=== PATIENT | male | born 1955 | race African-American/Black ===

== ENCOUNTER 2022-04-01 02:13 | Emergency (ER) | payer MEDICARE, MEDICAID ==
[~2022-04-01] VITALS: Ht 188 cm; Wt 90.9 kg
[2022-04-01 02:26] VITALS: BP 189/111
[2022-04-01] MEDS ORDERED: DOCU-138 MT (03:07)
[2022-04-01] MEDS: NA PHOS,M-B/NA PHOS,DI-BA ENEMA 118ML PR ONE ×2 (03:16→03:24)
== END 2022-04-01 03:25 | disposition home or self-care (01) ==
LOC: ER 02:13
DX: K59.00 Constipation, unspecified (principal); Z20.822 Contact with and (suspected) exposure to COVID-19
CPT/HCPCS: 87426; 99283; C9803

== ENCOUNTER 2023-07-06 16:53 | Emergency (ER) | payer MEDICARE, MEDICAID ==
[~2023-07-06] VITALS: Ht 188 cm; Wt 82.0 kg
[~2023-07-06 16:53] MED LIST: ASPI-1497 PO; ATOR10TA69 PO; BACL-141 MT; DOCU-138 MT; HYDR100T26 MT; LABE200T9 MT; LISI40TA13 PO; MULT-26 PO; VITA1TAB20 MT
[2023-07-06 17:00] VITALS: BP 150/95; PULSE 80; RESP 17; TEMP 97.9; O2SAT 98
[2023-07-06 18:10] LABS: BASOPHILS % 1.4 % (0.0-2.0); EOSINOPHILS % 5.3 % (0.0-5.0); HEMATOCRIT. 32.2 % (42.0-52.0); HEMOGLOBIN. 10.5 g/dL (14.0-18.0); LYMPHOCYTES % 31.6 % (20.0-50.0); MEAN CORPUSCULAR HEMOGLOBIN 29.1 pg (28.0-32.0); MEAN CORPUSCULAR HGB CONC 32.5 g/dL (31.0-37.0); MEAN CORPUSCULAR VOLUME 89.3 fL (80.0-94.0); MEAN PLATELET VOLUME 8.6 fl (7.4-10.4); MONOCYTES % 9.7 % (2.0-8.0); PLATELET 145 x1000/uL (130-400); RED CELL DISTRIBUTION WIDTH 18.5 % (11.6-14.6); WHITE BLOOD COUNT 4.3 x1000/uL (4.5-11.0)
[2023-07-06 18:18] LABS: ALANINE AMINOTRANSFERASE 23 IU/L (10-49); ASPARTATE AMINOTRANSFERASE 23 IU/L (<34); BILIRUBIN TOTAL 0.4 mg/dL (0.1-1.0); CARBON DIOXIDE 25 mEq/L (21-32); CHLORIDE 99 mEq/L (98-107); GLUCOSE 125 mg/dL (70-105); POTASSIUM 5.8 mEq/L (3.5-5.1); PROTEIN TOTAL 7.2 g/dL (6.0-8.3); SODIUM 137 mEq/L (136-145); TROPONIN I HIGH SENSITIVITY 51 ng/L (3.0-53); UREA NITROGEN BLOOD 60 mg/dL (9-23)
== END 2023-07-06 22:32 | disposition home or self-care (01) ==
LOC: ER 16:53
DX: R06.00 Dyspnea, unspecified (principal); E11.9 Type 2 diabetes mellitus without complications; E78.00 Pure hypercholesterolemia, unspecified; I10 Essential (primary) hypertension; Z79.899 Other long term (current) drug therapy
CPT/HCPCS: 36415; 71045; 80053; 83880; 84484; 85025; 93005; 99285

== ENCOUNTER 2023-10-26 13:23 | Emergency (ER) | payer MEDICARE, MEDICAID ==
[~2023-10-26] VITALS: Ht 188 cm; Wt 82.0 kg
[~2023-10-26 13:23] MED LIST changes: +AMLO10TA4 PO; +LEVO250T74 MT; +VITA-384 MT; -VITA1TAB20 MT
[2023-10-26 13:44] VITALS: O2SAT 100
[2023-10-26 15:48] LABS: HEMATOCRIT. 31.3 % (42.0-52.0); HEMOGLOBIN. 10.3 g/dL (14.0-18.0); MEAN CORPUSCULAR HEMOGLOBIN 29.5 pg (28.0-32.0); MEAN CORPUSCULAR HGB CONC 32.9 g/dL (31.0-37.0); MEAN CORPUSCULAR VOLUME 89.6 fL (80.0-94.0); MEAN PLATELET VOLUME 8.9 fl (7.4-10.4); PLATELET 154 x1000/uL (130-400); RED BLOOD CELL COUNT 3.49 mill/uL (4.7-6.1); RED CELL DISTRIBUTION WIDTH 17.5 % (11.6-14.6); WHITE BLOOD COUNT 3.6 x1000/uL (4.5-11.0)
[2023-10-26 15:51] LABS: DIFFERENTIAL COMMENT 1
[2023-10-26] MEDS ORDERED: LORATADINE 10MG TABLET PO SCH (16:00)
[2023-10-26 16:27] LABS: ATYPICAL LYMPHOCYTES 1; GIANT PLATELETS 1+; PLATELET ESTIMATE NORMAL; TARGET CELLS 1+
[2023-10-26] MEDS ORDERED: HYDR26CR2 TP (16:43)
[2023-10-26] MEDS ORDERED: LORA10TA7 MT (16:46)
[2023-10-26 16:47] VITALS: BP 136/84; PULSE 89; RESP 18; TEMP 98.3
== END 2023-10-26 16:54 | disposition home or self-care (01) ==
LOC: ER 13:23
DX: K64.4 Residual hemorrhoidal skin tags (principal); I12.0 Hypertensive chronic kidney disease with stage 5 chronic kidney disease or end stage renal disease; E11.22 Type 2 diabetes mellitus with diabetic chronic kidney disease; N18.6 End stage renal disease; Z99.2 Dependence on renal dialysis; Z79.899 Other long term (current) drug therapy
CPT/HCPCS: 36415; 85025; 99283

== ENCOUNTER 2023-12-09 16:46 | Inpatient (IN) | payer MEDICARE, MEDICAID ==
[~2023-12-09] VITALS: Ht 182.9 cm; Wt 70.8 kg
[~2023-12-09 16:46] MED LIST changes: -BACL-141 MT; +CLON1PAT12 TD; +GABA-532 PO; -LEVO250T74 MT; -LISI40TA13 PO; +LORA10TA7 MT; +MELA1TAB28 MT; +OMEP20CA14 PO
[2023-12-09 18:55] LABS: BASOPHILS % 1.8 % (0.0-2.0); EOSINOPHILS % 7.6 % (0.0-5.0); HEMATOCRIT. 31.6 % (42.0-52.0); HEMOGLOBIN. 10.5 g/dL (14.0-18.0); LYMPHOCYTES % 18.1 % (20.0-50.0); MEAN CORPUSCULAR HEMOGLOBIN 30.2 pg (28.0-32.0); MEAN CORPUSCULAR HGB CONC 33.2 g/dL (31.0-37.0); MEAN CORPUSCULAR VOLUME 90.8 fL (80.0-94.0); MEAN PLATELET VOLUME 8.7 fl (7.4-10.4); MONOCYTES % 13.7 % (2.0-8.0); NEUTROPHILS % 58.8 % (40.0-76.0); PLATELET 169 x1000/uL (130-400); RED BLOOD CELL COUNT 3.48 mill/uL (4.7-6.1); RED CELL DISTRIBUTION WIDTH 18.7 % (11.6-14.6); WHITE BLOOD COUNT 4.9 x1000/uL (4.5-11.0)
[2023-12-09 19:00] LABS: CHLORIDE 98 mEq/L (98-107); POTASSIUM 4.7 mEq/L (3.5-5.1); SODIUM 140 mEq/L (136-145)
[2023-12-09 19:01] LABS: CALCIUM 9.4 mg/dL (8.7-10.4); CARBON DIOXIDE 31 mEq/L (21-32)
[2023-12-09 19:06] LABS: GLUCOSE 84 mg/dL (70-105); UREA NITROGEN BLOOD 45 mg/dL (9-23)
[2023-12-09 19:07] LABS: ALANINE AMINOTRANSFERASE 18 IU/L (10-49); ASPARTATE AMINOTRANSFERASE 32 IU/L (<34)
[2023-12-09 19:08] LABS: ALBUMIN 4.7 g/dL (3.2-4.8); BILIRUBIN TOTAL 0.9 mg/dL (0.1-1.0); PHOSPHORUS 5.6 mg/dL (2.5-4.9); PROTEIN TOTAL 8.8 g/dL (6.0-8.3)
[2023-12-09 19:10] LABS: THYROID STIMULATING HORMONE 2.66 uIU/mL (0.55-4.78)
[2023-12-09 19:21] LABS: CREATININE 7.1 mg/dL (0.6-1.3)
[2023-12-09 19:22] LABS: TROPONIN I HIGH SENSITIVITY 66 ng/L (3.0-53)
[2023-12-09] MEDS: LABETALOL 5MG/ML SYR 20 MG/4 ML SYRINGE IV NR (20:00)
[2023-12-09] MEDS: LABETALOL 5MG/ML SYR 20 MG/4 ML SYRINGE IV ONE (21:00)
[2023-12-09] MEDS ORDERED: NICARDIPINE 50 MG in SODIUM CHLORIDE 0.9% 230 ML IV PRN (21:15)
[2023-12-09 21:51] LABS: TROPONIN I HIGH SENSITIVITY 64 ng/L (3.0-53)
[2023-12-09] MEDS: NICARDIPINE 40 MG/200 ML PREMIX 200 ML IV PRN (22:45)
[2023-12-09 23:06] LABS: HEPATITIS B SURFACE ANTIGEN NEGATIVE (Negative)
[2023-12-09 23:27] LABS: HEPATITIS A AB IGM NEGATIVE (Negative); HEPATITIS B CORE AB IGM NEGATIVE (Negative)
[2023-12-09 23:28] LABS: HEPATITIS C AB REACTIVE (Pos) (Negative)
[2023-12-10] VITALS (76 sets, daily range): BP systolic 97–165; BP diastolic 79–114; PULSE 78–100; RESP 0–37; TEMP 97.1–98.5
[2023-12-10 05:16] LABS: BASOPHILS % 1.8 % (0.0-2.0); EOSINOPHILS % 5.4 % (0.0-5.0); HEMATOCRIT. 29.9 % (42.0-52.0); HEMOGLOBIN. 9.9 g/dL (14.0-18.0); MEAN CORPUSCULAR HEMOGLOBIN 30.4 pg (28.0-32.0); MEAN CORPUSCULAR HGB CONC 33.2 g/dL (31.0-37.0); MEAN CORPUSCULAR VOLUME 91.5 fL (80.0-94.0); MEAN PLATELET VOLUME 9.4 fl (7.4-10.4); MONOCYTES % 12.8 % (2.0-8.0); PLATELET 181 x1000/uL (130-400); RED BLOOD CELL COUNT 3.26 mill/uL (4.7-6.1); RED CELL DISTRIBUTION WIDTH 18.5 % (11.6-14.6); WHITE BLOOD COUNT 4.8 x1000/uL (4.5-11.0)
[2023-12-10 05:24] LABS: POTASSIUM 4.5 mEq/L (3.5-5.1)
[2023-12-10 05:25] LABS: CALCIUM 8.8 mg/dL (8.7-10.4)
[2023-12-10 05:49] LABS: CREATININE 7.8 mg/dL (0.6-1.3)
[2023-12-10 09:40] LABS: AMMONIA < 17 uMol/L (<32)
[2023-12-10] MEDS ORDERED: IPRATROPIUM/ALBUTEROL 0.5-3(2.5)MG/3ML NEB HHN PRN (11:30)
[2023-12-10] MEDS ORDERED: ACETAMINOPHEN 325MG TABLET PO PRN (11:30)
[2023-12-10] MEDS ORDERED: ONDANSETRON HCL 4MG/2ML INJ IV PRN (11:30)
[2023-12-10] MEDS: AMLODIPINE 10MG TABLET PO SCH (12:46)
[2023-12-10] MEDS: LOSARTAN 100 MG TABLET PO SCH (12:46)
[2023-12-10] MEDS: SEVELAMER CARBONATE 800 MG TABLET PO SCH (12:47)
[2023-12-10] MEDS: CARVEDILOL 12.5MG TABLET PO NR (12:47)
[2023-12-10] MEDS: CLONIDINE 0.1MG TABLET PO SCH (16:56)
[2023-12-10] MEDS: CARVEDILOL 12.5MG TABLET PO SCH (21:59)
[2023-12-11] VITALS (25 sets, daily range): BP systolic 138–175; BP diastolic 80–128; PULSE 71–92; RESP 11–29; TEMP 97.1–98.6
[2023-12-11 06:48] LABS: HEMATOCRIT. 30.1 % (42.0-52.0); HEMOGLOBIN. 9.9 g/dL (14.0-18.0); MEAN CORPUSCULAR HEMOGLOBIN 30.3 pg (28.0-32.0); MEAN CORPUSCULAR VOLUME 91.7 fL (80.0-94.0); MEAN PLATELET VOLUME 9.4 fl (7.4-10.4); PLATELET 166 x1000/uL (130-400); RED BLOOD CELL COUNT 3.28 mill/uL (4.7-6.1); RED CELL DISTRIBUTION WIDTH 18.4 % (11.6-14.6)
[2023-12-11 06:58] LABS: DIFFERENTIAL COMMENT 1
[2023-12-11 07:38] LABS: CHLORIDE 101 mEq/L (98-107); SODIUM 139 mEq/L (136-145)
[2023-12-11 07:39] LABS: CARBON DIOXIDE 27 mEq/L (21-32)
[2023-12-11 07:44] LABS: GLUCOSE 106 mg/dL (70-105); UREA NITROGEN BLOOD 37 mg/dL (9-23)
[2023-12-11 09:08] LABS: CREATININE 6.9 mg/dL (0.6-1.3)
[2023-12-11] MEDS ORDERED: AMLO10TA80 MT (12:20)
[2023-12-11] MEDS ORDERED: CLON0.2T MT (12:20)
[2023-12-11] MEDS ORDERED: CARV25TA47 MT (12:20)
[2023-12-11] MEDS ORDERED: LOSA100T33 MT (12:20)
[2023-12-11 12:57] LABS: ANISOCYTOSIS 2+; PLATELET ESTIMATE NORMAL
[2023-12-12] VITALS (12 sets, daily range): BP systolic 126–167; BP diastolic 82–98; PULSE 66–82; RESP 17–20; TEMP 95.5–98.2
[2023-12-12 08:27] LABS: HEMATOCRIT. 29.1 % (42.0-52.0); HEMOGLOBIN. 9.9 g/dL (14.0-18.0); MEAN CORPUSCULAR HEMOGLOBIN 30.3 pg (28.0-32.0); MEAN CORPUSCULAR VOLUME 89.4 fL (80.0-94.0); MEAN PLATELET VOLUME 8.8 fl (7.4-10.4); PLATELET 151 x1000/uL (130-400); RED BLOOD CELL COUNT 3.26 mill/uL (4.7-6.1); RED CELL DISTRIBUTION WIDTH 18.2 % (11.6-14.6)
[2023-12-12 08:38] LABS: POTASSIUM 4.1 mEq/L (3.5-5.1)
[2023-12-12 08:39] LABS: CALCIUM 9.7 mg/dL (8.7-10.4)
[2023-12-12 08:48] LABS: CREATININE 8.3 mg/dL (0.6-1.3)
[2023-12-12 09:00] LABS: DIFFERENTIAL COMMENT 1
[2023-12-12 17:17] LABS: PLATELET ESTIMATE NORMAL
[2023-12-12 17:18] LABS: ANISOCYTOSIS 2+
[2023-12-13 04:00] VITALS: BP 155/94; PULSE 78; RESP 20; TEMP 97.6
[2023-12-13 08:00] VITALS: BP 159/96; PULSE 77; RESP 20; TEMP 98.4
[2023-12-13 11:34] VITALS: BP 152/91; PULSE 77; TEMP 97.9; O2SAT 94
[2023-12-13 11:40] VITALS: BP 152/91; PULSE 77; RESP 18; TEMP 97.9
== END 2023-12-13 12:00 | disposition home or self-care (01) | DRG 70 ==
LOC: ER 16:46 → CVICU 21:27 → 7WST 12-11 10:16
PROVIDERS: ADMIT Internal Medicine; ATTEND Internal Medicine
PROC: 5A1D70Z Performance of Urinary Filtration, Intermittent, Less than 6 Hours Per Day (ICD-10-PCS; principal; 2023-12-10)
PROC: 5A1D70Z Performance of Urinary Filtration, Intermittent, Less than 6 Hours Per Day (ICD-10-PCS; 2023-12-12)
DX: G93.41 Metabolic encephalopathy (principal); I50.23 Acute on chronic systolic (congestive) heart failure; N18.6 End stage renal disease; I13.2 Hypertensive heart and chronic kidney disease with heart failure and with stage 5 chronic kidney disease, or end stage renal disease; I16.1 Hypertensive emergency; B19.20 Unspecified viral hepatitis C without hepatic coma; D63.1 Anemia in chronic kidney disease; J44.9 Chronic obstructive pulmonary disease, unspecified; E11.22 Type 2 diabetes mellitus with diabetic chronic kidney disease; E78.5 Hyperlipidemia, unspecified; F14.90 Cocaine use, unspecified, uncomplicated; F17.210 Nicotine dependence, cigarettes, uncomplicated; Z99.2 Dependence on renal dialysis; Z79.899 Other long term (current) drug therapy
CPT/HCPCS: 36415; 71045; 80048; 80053; 82140; 82962; 83735; 83880; 84100; 84443; 84484; 85025; 86705; 86709; 87340; 90935; 93005; 97162; 97165; 99291; J3490

== ENCOUNTER 2024-08-21 14:06 | Emergency (ER) | payer MEDICARE, MEDICAID ==
[~2024-08-21] VITALS: Ht 172.7 cm; Wt 70.0 kg
[~2024-08-21 14:06] MED LIST changes: -AMLO10TA4 PO; +AMLO10TA80 MT; +CARV25TA47 MT; +CHOL200016 PO; +CLON0.2T MT; -CLON1PAT12 TD; -GABA-532 PO; +HYDR100T11 MT; -HYDR100T26 MT; +ISOS60TA76 PO; -LABE200T9 MT; +LOSA100T33 MT; +SEVE800T8 PO
[2024-08-21 14:54] LABS: HEMATOCRIT. 30.4 % (42.0-52.0); HEMOGLOBIN. 9.8 g/dL (14.0-18.0); MEAN CORPUSCULAR HEMOGLOBIN 27.4 pg (28.0-32.0); MEAN CORPUSCULAR HGB CONC 32.1 g/dL (31.0-37.0); MEAN CORPUSCULAR VOLUME 85.4 fL (80.0-94.0); MEAN PLATELET VOLUME 8.7 fl (7.4-10.4); PLATELET 121 x1000/uL (130-400); RED BLOOD CELL COUNT 3.56 mill/uL (4.7-6.1); RED CELL DISTRIBUTION WIDTH 17.3 % (11.6-14.6)
[2024-08-21 14:56] LABS: DIFFERENTIAL COMMENT 1
[2024-08-21 15:03] LABS: CHLORIDE 100 mEq/L (98-107); SODIUM 135 mEq/L (136-145)
[2024-08-21 15:04] LABS: CARBON DIOXIDE 21 mEq/L (21-32)
[2024-08-21 15:05] LABS: CALCIUM 8.9 mg/dL (8.7-10.4)
[2024-08-21 15:09] LABS: GLUCOSE 103 mg/dL (70-105)
[2024-08-21 15:10] LABS: UREA NITROGEN BLOOD 79 mg/dL (9-23)
[2024-08-21 15:11] LABS: ALANINE AMINOTRANSFERASE 18 IU/L (10-49); ALBUMIN 3.5 g/dL (3.2-4.8); ASPARTATE AMINOTRANSFERASE 48 IU/L (<34)
[2024-08-21 15:12] LABS: BILIRUBIN DIRECT 0.2 mg/dL (<=3.0); BILIRUBIN TOTAL 0.4 mg/dL (0.1-1.0); PROTEIN TOTAL 6.8 g/dL (6.0-8.3)
[2024-08-21 15:26] LABS: PLATELET ESTIMATE NORMAL
[2024-08-21 15:34] LABS: POTASSIUM 6.4 mEq/L (3.5-5.1)
[2024-08-21 15:35] LABS: CREATININE 11.4 mg/dL (0.6-1.3); ETHANOL BLOOD < 10 mg/dL (<10); TROPONIN I HIGH SENSITIVITY 111 ng/L (3.0-53)
[2024-08-21] MEDS ORDERED: FUROSEMIDE 40MG/4ML VIAL IV NR (16:51)
[2024-08-21] MEDS: CALCIUM CHLORIDE 1GM/10ML SYR IV NR (17:19)
[2024-08-21] MEDS: FUROSEMIDE 40MG/4ML VIAL IVP NR (17:20)
[2024-08-21] MEDS: SODIUM POLYSTYRENE SULFONATE 15 G/60 ML BOT PO NR (17:20)
[2024-08-21] MEDS: ASPIRIN 325MG EC TABLET PO NR (17:20)
[2024-08-21] MEDS: DEXTROSE 50% WATER 50ML SYRINGE IV NR (17:23)
[2024-08-21] MEDS: INSULIN REGULAR (HUMULIN R) 1000UNITS/10ML VIAL IV NR (17:24)
[2024-08-21] MEDS: SODIUM BICARBONATE 8.4% 50MEQ/50ML SYR IV NR (17:24)
[2024-08-21] MEDS: ENOXAPARIN 80MG/0.8ML SYR SUBCUT NR (17:26)
[2024-08-21 17:45] VITALS: PULSE 74; RESP 20; O2SAT 97
[2024-08-21] MEDS: ALBUTEROL (0.083%) 2.5MG/3ML NEB HHN NR (17:45)
[2024-08-21] MEDS ORDERED: IPRATROPIUM/ALBUTEROL 0.5-3(2.5)MG/3ML NEB HHN PRN (18:00)
[2024-08-21] MEDS ORDERED: ACETAMINOPHEN 325MG TABLET PO PRN (18:00)
[2024-08-21] MEDS ORDERED: ONDANSETRON HCL 4MG/2ML INJ IV PRN (18:00)
[2024-08-21] MEDS ORDERED: CLONIDINE 0.1MG TABLET PO PRN (18:00)
[2024-08-21] MEDS ORDERED: SODIUM POLYSTYRENE SULFONATE 15 G/60 ML BOT PO ONE (18:00)
[2024-08-21] MEDS ORDERED: MAGNESIUM/ALUMINUM HYDROXIDE/SIMETHICONE 30ML UDC PO PRN (18:00)
[2024-08-21] MEDS ORDERED: GUAIFENESIN 200MG/10ML SUGAR FREE UDC PO PRN (18:30)
[2024-08-21] MEDS: SODIUM ZIRCONIUM CYCLOSILICATE 10GM/PACKET PO NR (18:46)
[2024-08-21 20:25] LABS: D-DIMER 3.99 mg/L FEU (<0.50); INR 1.2; PROTHROMBIN TIME 13.5 sec (9.6-11.0)
[2024-08-21 20:26] LABS: CARBON DIOXIDE 22 mEq/L (21-32); CHLORIDE 101 mEq/L (98-107); POTASSIUM 5.9 mEq/L (3.5-5.1); SODIUM 137 mEq/L (136-145)
[2024-08-21 20:27] LABS: CALCIUM 9.3 mg/dL (8.7-10.4)
[2024-08-21 20:31] LABS: IRON 37 ug/dL (65-175)
[2024-08-21 20:32] LABS: GLUCOSE 67 mg/dL (70-105); TRIGLYCERIDE 115 mg/dL (0-150); UREA NITROGEN BLOOD 81 mg/dL (9-23)
[2024-08-21 20:33] LABS: LDL CHOLESTEROL 25 mg/dL (5-100)
[2024-08-21 20:34] LABS: CHOLESTEROL 107 mg/dL (<200); HDL CHOLESTEROL 23 mg/dL (>55); TOTAL IRON BINDING CAPACITY 222 ug/dl (250-425)
[2024-08-21 20:38] LABS: T4 FREE 1.04 ng/dL (0.89-1.76); THYROID STIMULATING HORMONE 3.02 uIU/mL (0.55-4.78)
[2024-08-21 20:39] LABS: CREATININE 11.4 mg/dL (0.6-1.3)
[2024-08-21 20:44] LABS: FOLIC ACID (FOLATE) SERUM 16.13 ng/mL (>5.38); VITAMIN B12 SERUM 989 pg/mL (211-911)
[2024-08-21 20:45] LABS: FERRITIN 589 ng/mL (22-322)
[2024-08-21] MEDS ORDERED: FAMOTIDINE 20MG TABLET PO SCH (21:00)
[2024-08-21] MEDS ORDERED: ATORVASTATIN CALCIUM 10MG TABLET PO SCH (21:00)
[2024-08-21 22:41] VITALS: BP 142/84; PULSE 76; RESP 20; TEMP 36.66960; O2SAT 92
[2024-08-22] MEDS ORDERED: ENOXAPARIN 30MG/0.3ML SYR SUBCUT SCH (09:00)
[2024-08-22] MEDS ORDERED: ASPIRIN 81MG EC TABLET PO SCH (09:00)
[2024-08-22] MEDS ORDERED: FUROSEMIDE 40MG/4ML VIAL IV SCH (09:00)
== END 2024-08-22 03:00 | disposition left against medical advice (07) ==
LOC: ER 14:10 → EDBEDREQ 17:04 → ER 08-22 03:00
DX: E78.5 Hyperlipidemia, unspecified (principal); E61.1 Iron deficiency; I21.4 Non-ST elevation (NSTEMI) myocardial infarction; E11.22 Type 2 diabetes mellitus with diabetic chronic kidney disease; E87.5 Hyperkalemia; E87.6 Hypokalemia; E87.8 Other disorders of electrolyte and fluid balance, not elsewhere classified; I13.2 Hypertensive heart and chronic kidney disease with heart failure and with stage 5 chronic kidney disease, or end stage renal disease; I50.9 Heart failure, unspecified; Z79.82 Long term (current) use of aspirin; Z79.899 Other long term (current) drug therapy; Z86.19 Personal history of other infectious and parasitic diseases; Z90.5 Acquired absence of kidney; Z91.158 Patient's noncompliance with renal dialysis for other reason; Z95.810 Presence of automatic (implantable) cardiac defibrillator; Z99.2 Dependence on renal dialysis
CPT/HCPCS: 80061; 80076; 80048; 80320; 82607; 82728; 82746; 83880; 84439; 83540; 83550; 83690; 84443; 85025; 85379; 85610; 84484; 36415; 71045; 70450; 76700; 76705; 94640; 93005; 94070; 96372; 96374; 96375; 99291; 99292; J3490 ×2; J1650; J1940; J1815; G0480

== ENCOUNTER 2025-01-04 17:20 | Inpatient (IN) | payer MEDICARE, MEDICAID ==
[~2025-01-04] VITALS: Ht 188 cm; Wt 85.4 kg
[~2025-01-04 17:20] MED LIST changes: +ASPI-1406 PO; +CARV25TA47 PO; +CLON-493 PO; +HYDR100T11 PO; +ISOS-51 PO; +LOSA100T33 PO; +NIFE20CA8 PO
[2025-01-04 17:31] VITALS: O2SAT 97
[2025-01-04 18:06] LABS: EOSINOPHILS % 7.5 % (0.0-5.0); HEMATOCRIT. 29.3 % (42.0-52.0); HEMOGLOBIN. 9.7 g/dL (14.0-18.0); LYMPHOCYTES % 17.4 % (20.0-50.0); MEAN CORPUSCULAR HEMOGLOBIN 27.6 pg (28.0-32.0); MEAN CORPUSCULAR HGB CONC 33.2 g/dL (31.0-37.0); MEAN CORPUSCULAR VOLUME 83.1 fL (80.0-94.0); MEAN PLATELET VOLUME 7.1 fl (7.4-10.4); MONOCYTES % 10.6 % (2.0-8.0); NEUTROPHILS % 63.5 % (40.0-76.0); PLATELET 214 x1000/uL (130-400); RED BLOOD CELL COUNT 3.52 mill/uL (4.7-6.1); RED CELL DISTRIBUTION WIDTH 18.4 % (11.6-14.6); WHITE BLOOD COUNT 4.5 x1000/uL (4.5-11.0)
[2025-01-04 18:12] LABS: CHLORIDE 96 mEq/L (98-107); POTASSIUM 3.6 mEq/L (3.5-5.1); SODIUM 137 mEq/L (136-145)
[2025-01-04 18:13] LABS: CALCIUM 9.2 mg/dL (8.7-10.4); CARBON DIOXIDE 30 mEq/L (21-32)
[2025-01-04 18:18] LABS: GLUCOSE 123 mg/dL (70-105)
[2025-01-04 18:19] LABS: CREATININE 4.3 mg/dL (0.6-1.3); ETHANOL BLOOD < 10 mg/dL (<10); TROPONIN I HIGH SENSITIVITY 32 ng/L (3.0-53); UREA NITROGEN BLOOD 20 mg/dL (9-23)
[2025-01-04 18:20] LABS: ACETAMINOPHEN < 2 ug/mL (10-30); ALANINE AMINOTRANSFERASE 19 IU/L (10-49); ALBUMIN 3.9 g/dL (3.2-4.8); AMMONIA 18 uMol/L (<32); ASPARTATE AMINOTRANSFERASE 32 IU/L (<34); CREATINE KINASE 242 IU/L (46-171)
[2025-01-04 18:21] LABS: BILIRUBIN DIRECT 0.3 mg/dL (<=3.0); BILIRUBIN TOTAL 0.6 mg/dL (0.1-1.0); PROTEIN TOTAL 7.6 g/dL (6.0-8.3)
[2025-01-04 18:23] LABS: THYROID STIMULATING HORMONE 3.88 uIU/mL (0.55-4.78)
[2025-01-04 18:26] LABS: INR 1.2; PROTHROMBIN TIME 12.4 sec (9.6-11.0)
[2025-01-04] MEDS: ACETAMINOPHEN 325MG TABLET PO ONE (20:12)
[2025-01-04] MEDS ORDERED: DEXTROSE 50% WATER 50ML SYRINGE IV PRN (22:30)
[2025-01-04] MEDS ORDERED: ACETAMINOPHEN 325MG TABLET PO PRN (22:30)
[2025-01-04] MEDS ORDERED: MAGNESIUM/ALUMINUM HYDROXIDE/SIMETHICONE 30ML UDC PO PRN (22:30)
[2025-01-04 22:45] VITALS: BP 152/86; PULSE 87; RESP 20; TEMP 36.6
[2025-01-05] VITALS (7 sets, daily range): BP systolic 143–182; BP diastolic 86–100; PULSE 71–88; RESP 18–20; TEMP 36.3–37.4; O2SAT 96–100
[2025-01-05] MEDS: ACETAMINOPHEN 325MG TABLET PO PRN (04:19)
[2025-01-05 05:57] LABS: BASOPHILS % 1.2 % (0.0-2.0); HEMATOCRIT. 30.4 % (42.0-52.0); HEMOGLOBIN. 10.2 g/dL (14.0-18.0); LYMPHOCYTES % 16.7 % (20.0-50.0); MEAN CORPUSCULAR HEMOGLOBIN 27.7 pg (28.0-32.0); MEAN CORPUSCULAR HGB CONC 33.6 g/dL (31.0-37.0); MEAN CORPUSCULAR VOLUME 82.3 fL (80.0-94.0); MEAN PLATELET VOLUME 7.8 fl (7.4-10.4); MONOCYTES % 12.7 % (2.0-8.0); NEUTROPHILS % 62.4 % (40.0-76.0); PLATELET 208 x1000/uL (130-400); RED BLOOD CELL COUNT 3.69 mill/uL (4.7-6.1); RED CELL DISTRIBUTION WIDTH 17.7 % (11.6-14.6); WHITE BLOOD COUNT 4.1 x1000/uL (4.5-11.0)
[2025-01-05 06:12] LABS: CALCIUM 8.9 mg/dL (8.7-10.4); CARBON DIOXIDE 29 mEq/L (21-32); CHLORIDE 94 mEq/L (98-107); POTASSIUM 3.9 mEq/L (3.5-5.1); SODIUM 134 mEq/L (136-145)
[2025-01-05 06:14] LABS: FERRITIN 185 ng/mL (22-322)
[2025-01-05 06:16] LABS: CREATININE 4.7 mg/dL (0.6-1.3); GLUCOSE 114 mg/dL (70-105); TRIGLYCERIDE 48 mg/dL (0-150)
[2025-01-05 06:17] LABS: FOLIC ACID (FOLATE) SERUM 10.37 ng/mL (>5.38); LDL CHOLESTEROL 19 mg/dL (5-100); VITAMIN B12 SERUM 494 pg/mL (211-911)
[2025-01-05 06:18] LABS: CHOLESTEROL 89 mg/dL (<200); HDL CHOLESTEROL 43 mg/dL (>55); UREA NITROGEN BLOOD 25 mg/dL (9-23)
[2025-01-05 06:19] LABS: PHOSPHORUS 4.2 mg/dL (2.5-4.9)
[2025-01-05 06:23] LABS: TROPONIN I HIGH SENSITIVITY 36 ng/L (3.0-53)
[2025-01-05 06:24] LABS: T4 FREE 1.37 ng/dL (0.89-1.76)
[2025-01-05 06:35] LABS: IRON 56 ug/dL (65-175)
[2025-01-05 06:38] LABS: TOTAL IRON BINDING CAPACITY 195 ug/dl (250-425)
[2025-01-05] MEDS: HYDRALAZINE HCL 100MG TABLET PO SCH (06:45)
[2025-01-05] MEDS: INSULIN LISPRO 100 UNITS/ML SUBCUT SCH (07:41)
[2025-01-05] MEDS: BLOOD SUGAR DIAGNOSTIC STRIP TEST SCH (07:41)
[2025-01-05] MEDS: CARVEDILOL 12.5MG TABLET PO SCH (08:42)
[2025-01-05] MEDS: LOSARTAN 100 MG TABLET PO SCH (08:42)
[2025-01-05] MEDS: AMLODIPINE 10MG TABLET PO SCH (08:42)
[2025-01-05] MEDS: ISOSORBIDE MONONITRATE 60MG TABLET SR 24HR PO SCH (08:42)
[2025-01-05] MEDS: DOCUSATE SODIUM 100MG CAPSULE PO SCH (08:42)
[2025-01-05] MEDS: LORATADINE 10MG TABLET PO SCH (08:42)
[2025-01-05] MEDS: ASPIRIN 81MG EC TABLET PO SCH (08:42)
[2025-01-05] MEDS ORDERED: HYDRALAZINE HCL 100MG TABLET PO SCH (09:00)
[2025-01-05] MEDS: CLONIDINE 0.1MG TABLET PO PRN (12:23)
[2025-01-05] MEDS: SEVELAMER CARBONATE 800 MG TABLET PO SCH (12:23)
[2025-01-05] MEDS: CLONIDINE 0.3MG TABLET PO SCH (14:00)
[2025-01-05] MEDS: ARIPIPRAZOLE 5MG TABLET PO SCH (14:05)
[2025-01-05 16:21] LABS: TROPONIN I HIGH SENSITIVITY 31 ng/L (3.0-53)
[2025-01-05 16:39] LABS: HEPATITIS B SURFACE ANTIGEN NEGATIVE (Negative)
[2025-01-05 17:00] LABS: HEPATITIS A AB IGM NEGATIVE (Negative); HEPATITIS B CORE AB IGM NEGATIVE (Negative)
[2025-01-05 17:34] LABS: HEPATITIS C AB REACTIVE (Pos) (Negative)
[2025-01-05] MEDS ORDERED: MELATONIN 3MG TABLET PO SCH (21:00)
[2025-01-05] MEDS: MELATONIN 3MG TABLET PO SCH (21:16)
[2025-01-05] MEDS: ATORVASTATIN CALCIUM 10MG TABLET PO SCH (21:16)
[2025-01-06] VITALS (15 sets, daily range): BP systolic 119–166; BP diastolic 75–89; PULSE 60–96; RESP 17–20; TEMP 36.1–36.9; O2SAT 95–99
[2025-01-06 06:37] LABS: HEMATOCRIT 26.8 % (42.0-52.0); HEMOGLOBIN 9.1 g/dL (14.0-18.0); MEAN CORPUSCULAR HEMOGLOBIN 27.7 pg (28.0-32.0); MEAN CORPUSCULAR HGB CONC 33.9 g/dL (31.0-37.0); MEAN CORPUSCULAR VOLUME 81.7 fL (80.0-94.0); PLATELET 187 x1000/uL (130-400); RED BLOOD CELL COUNT 3.27 mill/uL (4.7-6.1); RED CELL DISTRIBUTION WIDTH 17.7 % (11.6-14.6); WHITE BLOOD COUNT 3.7 x1000/uL (4.5-11.0)
[2025-01-06 06:48] LABS: POTASSIUM 4.4 mEq/L (3.5-5.1)
[2025-01-06 06:59] LABS: CREATININE 6.2 mg/dL (0.6-1.3)
== END 2025-01-06 19:40 | disposition home health service (06) | DRG 291 ==
LOC: ER 17:20 → ENRESERV 21:42 → 7WST 22:31
PROVIDERS: ADMIT Hospitalist; ATTEND Hospitalist
PROC: 5A1D70Z Performance of Urinary Filtration, Intermittent, Less than 6 Hours Per Day (ICD-10-PCS; principal; 2025-01-06)
DX: I13.2 Hypertensive heart and chronic kidney disease with heart failure and with stage 5 chronic kidney disease, or end stage renal disease (principal); N18.6 End stage renal disease; F23 Brief psychotic disorder; L29.89 Other pruritus; I50.42 Chronic combined systolic (congestive) and diastolic (congestive) heart failure; B19.20 Unspecified viral hepatitis C without hepatic coma; R06.02 Shortness of breath; R53.1 Weakness; E11.40 Type 2 diabetes mellitus with diabetic neuropathy, unspecified; G47.00 Insomnia, unspecified; Z99.2 Dependence on renal dialysis; E11.22 Type 2 diabetes mellitus with diabetic chronic kidney disease; I48.91 Unspecified atrial fibrillation; D64.9 Anemia, unspecified; Z86.73 Personal history of transient ischemic attack (TIA), and cerebral infarction without residual deficits; Z91.148 Patient's other noncompliance with medication regimen for other reason; Z95.810 Presence of automatic (implantable) cardiac defibrillator
CPT/HCPCS: 36415; 71045; 80048; 80061; 80076; 80307; 80320; 80329; 82140; 82550; 82607; 82728; 82746; 82962; 83036; 83540; 83550; 83735; 84100; 84439; 84443; 84484; 85025; 85027; 86705; 86709; 87340; 90935; 93005; 97166; 99285; J1815; G0480

== ENCOUNTER 2025-01-28 09:53 | Emergency (ER) | payer MEDICARE, MEDICAID ==
[~2025-01-28] VITALS: Ht 188 cm; Wt 81.6 kg
[~2025-01-28 09:53] MED LIST changes: -AMLO10TA80 MT; +AMLO10TA80 PO; +ARIP5TAB51 PO; -ASPI-1406 PO; -CARV25TA47 PO; -CLON-493 PO; +CLON0.1T PO; -CLON0.2T MT; -HYDR100T11 PO; -ISOS-51 PO; -LOSA100T33 PO; -MELA1TAB28 MT; -MULT-26 PO; -NIFE20CA8 PO; -OMEP20CA14 PO; -SEVE800T8 PO; -VITA-384 MT
[2025-01-28 09:59] VITALS: O2SAT 98
[2025-01-28] MEDS ORDERED: ACET-2708 MT (10:47)
[2025-01-28] MEDS: ACETAMINOPHEN 325MG TABLET PO ONE (11:35)
[2025-01-28 11:48] VITALS: BP 177/96; PULSE 60; RESP 18; TEMP 36.6; O2SAT 98
== END 2025-01-28 11:52 | disposition home or self-care (01) ==
LOC: ER 09:53
DX: R53.1 Weakness (principal); I13.2 Hypertensive heart and chronic kidney disease with heart failure and with stage 5 chronic kidney disease, or end stage renal disease; E11.22 Type 2 diabetes mellitus with diabetic chronic kidney disease; N18.6 End stage renal disease; Z79.82 Long term (current) use of aspirin; Z79.899 Other long term (current) drug therapy; Z99.2 Dependence on renal dialysis
CPT/HCPCS: 99283; A4606

== ENCOUNTER 2025-04-12 11:40 | Inpatient (IN) | payer MEDICARE, MEDICAID ==
[~2025-04-12] VITALS: Ht 185.4 cm; Wt 74.8 kg
[2025-04-12] VITALS (9 sets, daily range): BP systolic 166–207; BP diastolic 86–128; PULSE 81–114; RESP 18–20; TEMP 36.0844–36.61404; O2SAT 94–100
[~2025-04-12 11:40] MED LIST changes: +ACET-2708 MT; -AMLO10TA80 PO; +CARV12.545 MT; -CARV25TA47 MT; +FAMO20TA8 PO; -LORA10TA7 MT; -LOSA100T33 MT; +LOV30 SUBCUT; +NIFE-32 PO; +POLY17PO43 PO; +SEVE800T8 PO
[2025-04-12 12:29] LABS: HEMATOCRIT. 41.7 % (42.0-52.0); HEMOGLOBIN. 13.8 g/dL (14.0-18.0); MEAN PLATELET VOLUME 8.0 fl (7.4-10.4); PLATELET 188 x1000/uL (130-400); RED BLOOD CELL COUNT 5.09 mill/uL (4.7-6.1); RED CELL DISTRIBUTION WIDTH 19.2 % (11.6-14.6)
[2025-04-12] MEDS ORDERED: IPRATROPIUM/ALBUTEROL 0.5-3(2.5)MG/3ML NEB NEB PRN (12:45)
[2025-04-12] MEDS ORDERED: ONDANSETRON HCL 4MG/2ML INJ IV PRN (12:45)
[2025-04-12] MEDS ORDERED: ACETAMINOPHEN 325MG TABLET PO PRN (12:45)
[2025-04-12] MEDS ORDERED: GUAIFENESIN 200MG/10ML SUGAR FREE UDC PO PRN (12:45)
[2025-04-12 12:51] LABS: UREA NITROGEN BLOOD 17 mg/dL (9-23)
[2025-04-12 12:52] LABS: ETHANOL BLOOD < 10 mg/dL (<10)
[2025-04-12 12:53] LABS: ASPARTATE AMINOTRANSFERASE 23 IU/L (<34); BILIRUBIN DIRECT 0.6 mg/dL (<=3.0); BILIRUBIN TOTAL 1.3 mg/dL (0.1-1.0); INR 1.2; PROTEIN TOTAL 8.1 g/dL (6.0-8.3)
[2025-04-12 13:03] LABS: CREATININE 5.1 mg/dL (0.6-1.3)
[2025-04-12] MEDS ORDERED: DEXTROSE 50% WATER 50ML SYRINGE IV PRN (13:15)
[2025-04-12] MEDS: INSULIN LISPRO 100 UNITS/ML SUBCUT SCH (13:20)
[2025-04-12 13:28] LABS: HEPATITIS A AB IGM NEGATIVE (Negative)
[2025-04-12 13:29] LABS: HEPATITIS B CORE AB IGM NEGATIVE (Negative)
[2025-04-12] MEDS: IOHEXOL-350 100 ML BOTTLE ONE (13:29)
[2025-04-12] MEDS: PANTOPRAZOLE SODIUM 40 MG/VIAL IV SCH (13:32)
[2025-04-12 13:48] LABS: HEPATITIS C AB REACTIVE (Pos) (Negative)
[2025-04-12 14:13] LABS: BAND% 1.0 % (1.0-6.0); EOSINOPHILS % MANUAL 4.0 % (0.0-5.0); LYMPHOCYTES % MANUAL 24.0 % (20.0-50.0); MONOCYTES % MANUAL 12.0 % (2.0-8.0); NEUTROPHILS % MANUAL 59.0 % (45.0-75.0)
[2025-04-12 14:14] LABS: PLATELET ESTIMATE NORMAL
[2025-04-12] MEDS: CARVEDILOL 12.5MG TABLET PO SCH (15:43)
[2025-04-12] MEDS: HYDRALAZINE 20MG/ML VIAL IV PRN (16:17)
[2025-04-12] MEDS: SEVELAMER CARBONATE 800 MG TABLET PO SCH (17:40)
[2025-04-12] MEDS: BLOOD SUGAR DIAGNOSTIC STRIP TEST SCH (17:47)
[2025-04-12] MEDS ORDERED: ISOS30TA91 PO (18:53)
[2025-04-12] MEDS ORDERED: CLON0.3T PO (18:53)
[2025-04-12] MEDS ORDERED: CARV25TA47 PO (18:53)
[2025-04-12] MEDS ORDERED: EMPA10TA PO (18:53)
[2025-04-12] MEDS ORDERED: SACU1TAB4 PO (18:53)
[2025-04-12] MEDS ORDERED: NITROGLYCERIN 0.1MG/HR PATCH TOP SCH (19:00)
[2025-04-12] MEDS ORDERED: DEXT 5%/0.9% NACL 1,000 ML IV ONE (19:30)
[2025-04-12] MEDS ORDERED: METOPROLOL TARTRATE 5MG/5ML VIAL IV PRN (20:30)
[2025-04-12] MEDS: ATORVASTATIN CALCIUM 10MG TABLET PO SCH (21:00)
[2025-04-12] MEDS ORDERED: CARVEDILOL 12.5MG TABLET PO SCH ×2 (21:00)
[2025-04-12] MEDS ORDERED: SACUBITRIL/VALSARTAN 49MG/51MG TABLET PO SCH (21:00)
[2025-04-12] MEDS ORDERED: APIXABAN 2.5 MG TABLET PO SCH (21:00)
[2025-04-12] MEDS: CLONIDINE 0.3MG TABLET PO SCH (21:16)
[2025-04-12 21:43] LABS: FOLIC ACID (FOLATE) SERUM 19.84 ng/mL (>5.38)
[2025-04-12 21:44] LABS: INR 1.2
[2025-04-12 21:45] LABS: VITAMIN B12 SERUM 1668 pg/mL (211-911)
[2025-04-12 21:51] LABS: TROPONIN I HIGH SENSITIVITY 86 ng/L (3.0-53)
[2025-04-12] MEDS ORDERED: HYDRALAZINE HCL 100MG TABLET PO SCH (22:00)
[2025-04-12] MEDS: DEXT 5%/0.45% NACL 1000ML 1,000 ML IV SCH (22:43)
[2025-04-12] MEDS: ENOXAPARIN 80MG/0.8ML SYR SUBCUT SCH (22:43)
[2025-04-13] VITALS: BP 180/80; PULSE 77; RESP 18; TEMP 36.7; O2SAT 98
[2025-04-13 04:00] VITALS: BP 179/79; PULSE 79; RESP 18; TEMP 36.2; O2SAT 98
[2025-04-13 08:00] VITALS: BP 154/97; PULSE 81; RESP 15; TEMP 36.7; O2SAT 96
[2025-04-13] MEDS: EMPAGLIFLOZIN 10MG TABLET PO SCH (08:14)
[2025-04-13 11:13] LABS: HEMATOCRIT. 44.7 % (42.0-52.0); HEMOGLOBIN. 14.3 g/dL (14.0-18.0); MEAN PLATELET VOLUME 7.9 fl (7.4-10.4); PLATELET 190 x1000/uL (130-400); RED BLOOD CELL COUNT 5.40 mill/uL (4.7-6.1); RED CELL DISTRIBUTION WIDTH 19.1 % (11.6-14.6)
[2025-04-13 11:27] LABS: UREA NITROGEN BLOOD 19 mg/dL (9-23)
[2025-04-13 11:29] LABS: PHOSPHORUS 4.7 mg/dL (2.5-4.9)
[2025-04-13 11:31] LABS: T4 FREE 1.66 ng/dL (0.89-1.76)
[2025-04-13 11:55] LABS: CREATININE 5.7 mg/dL (0.6-1.3)
[2025-04-13 12:00] VITALS: BP 235/108; PULSE 92; RESP 15; TEMP 36.6; O2SAT 96
[2025-04-13 16:00] VITALS: BP 189/97; PULSE 91; RESP 16; TEMP 36.4; O2SAT 94
[2025-04-13 16:44] LABS: EOSINOPHILS % MANUAL 5.0 % (0.0-5.0); LYMPHOCYTES % MANUAL 19.0 % (20.0-50.0); MONOCYTES % MANUAL 10.0 % (2.0-8.0); NEUTROPHILS % MANUAL 66.0 % (45.0-75.0); PLATELET ESTIMATE NORMAL
[2025-04-13 20:00] VITALS: BP 145/96; PULSE 92; RESP 18; TEMP 35.9; O2SAT 95
[2025-04-14] VITALS (11 sets, daily range): BP systolic 139–192; BP diastolic 77–107; PULSE 72–90; RESP 18–19; TEMP 36.1–36.7; O2SAT 96–100
[2025-04-14 07:23] LABS: TRIGLYCERIDE 144.0 mg/dL (0-150)
[2025-04-14 07:24] LABS: LDL CHOLESTEROL 49.0 mg/dL (5-100)
[2025-04-14] MEDS: ASPIRIN 81MG EC TABLET PO SCH (09:09)
[2025-04-14] MEDS: CLOPIDOGREL 75MG TABLET PO SCH (09:09)
[2025-04-14] MEDS: HYDRALAZINE HCL 50MG TABLET PO SCH (14:00)
[2025-04-15] VITALS (7 sets, daily range): BP systolic 125–169; BP diastolic 70–98; PULSE 75–90; RESP 18–19; TEMP 36.2–36.7; O2SAT 97–100
[2025-04-16] VITALS (9 sets, daily range): BP systolic 135–178; BP diastolic 82–101; PULSE 65–88; RESP 18–19; TEMP 36–36.6696; O2SAT 95–99
[2025-04-16 08:08] LABS: CREATINE KINASE MB FRACTION 4.3 ng/mL (0.5-3.6)
[2025-04-16 08:15] LABS: TROPONIN I HIGH SENSITIVITY 71 ng/L (3.0-53)
[2025-04-16 17:42] LABS: CREATINE KINASE MB FRACTION 5.3 ng/mL (0.5-3.6)
[2025-04-16 17:52] LABS: TROPONIN I HIGH SENSITIVITY 63.0 ng/L (3.0-53)
[2025-04-16] MEDS: ACETAMINOPHEN 325MG TABLET PO PRN (20:56)
[2025-04-16] MEDS: CLONIDINE 0.1MG TABLET PO PRN (20:57)
[2025-04-17] VITALS: BP 145/100; PULSE 69; RESP 18; TEMP 36.2; O2SAT 98
[2025-04-17 04:00] VITALS: BP 160/90; PULSE 65; RESP 18; TEMP 36.4; O2SAT 99
[2025-04-17 08:00] VITALS: BP 155/90; PULSE 69; RESP 18; TEMP 36.1; O2SAT 99
[2025-04-17 12:00] VITALS: BP 136/81; PULSE 71; RESP 18; TEMP 36.6
[2025-04-17 12:12] LABS: UREA NITROGEN BLOOD 28 mg/dL (9-23)
[2025-04-17 12:14] LABS: ASPARTATE AMINOTRANSFERASE 20 IU/L (<34); BILIRUBIN TOTAL 0.9 mg/dL (0.1-1.0); PROTEIN TOTAL 6.9 g/dL (6.0-8.3)
[2025-04-17 12:16] LABS: CREATININE 7.7 mg/dL (0.6-1.3)
[2025-04-17 16:00] VITALS: BP 170/110; PULSE 73; RESP 20; TEMP 36.1; O2SAT 95
[2025-04-17 20:00] VITALS: BP 141/88; PULSE 74; RESP 17; TEMP 36.5; O2SAT 99
[2025-04-18] VITALS: BP 137/85; PULSE 67; RESP 17; TEMP 36.5; O2SAT 99
[2025-04-18 04:01] VITALS: BP 129/76; PULSE 65; RESP 17; TEMP 36.5; O2SAT 99
[2025-04-18 08:00] VITALS: BP 143/88; PULSE 69; RESP 18; TEMP 36; O2SAT 97
[2025-04-18 12:00] VITALS: BP 131/87; PULSE 75; RESP 18; TEMP 36.1; O2SAT 97
[2025-04-18 16:00] VITALS: BP 141/91; PULSE 70; RESP 18; TEMP 36.9; O2SAT 97
[2025-04-18 20:00] VITALS: BP 164/107; PULSE 68; RESP 18; TEMP 36.4; O2SAT 97
[2025-04-18] MEDS: CARVEDILOL 12.5MG TABLET PO SCH (21:00)
[2025-04-19] VITALS (14 sets, daily range): BP systolic 116–184; BP diastolic 51–122; PULSE 66–90; RESP 18–20; TEMP 36.2–37.2; O2SAT 96–99
[2025-04-19 06:59] LABS: UREA NITROGEN BLOOD 40.0 mg/dL (9-23)
[2025-04-19 07:10] LABS: CREATININE 9.5 mg/dL (0.6-1.3)
[2025-04-19] MEDS: DIPHENHYDRAMINE 25MG CAPSULE PO NR (11:06)
[2025-04-20] VITALS (9 sets, daily range): BP systolic 135–165; BP diastolic 55–106; PULSE 18–86; RESP 18; TEMP 36.3–37.2; O2SAT 97–98
[2025-04-20] MEDS: ASPIRIN 81MG TABLET PO SCH (08:44)
[2025-04-20] MEDS: ENOXAPARIN 30MG/0.3ML SYR SUBCUT SCH (08:44)
[2025-04-20] MEDS ORDERED: APIX2.5T PO (17:33)
== END 2025-04-20 21:40 | DRG 70 ==
LOC: ER 11:40 → 8WST 12:41 → EDBEDREQTM 12:56 → EDBEDREQ 12:56 → ENRESERV 15:22
PROVIDERS: ADMIT Internal Medicine; ATTEND Internal Medicine
PROC: 5A1D70Z Performance of Urinary Filtration, Intermittent, Less than 6 Hours Per Day (ICD-10-PCS; 2025-04-12)
PROC: 4B02XSZ Measurement of Cardiac Pacemaker, External Approach (ICD-10-PCS; principal; 2025-04-14)
PROC: 5A1D70Z Performance of Urinary Filtration, Intermittent, Less than 6 Hours Per Day (ICD-10-PCS; 2025-04-14)
PROC: 5A1D70Z Performance of Urinary Filtration, Intermittent, Less than 6 Hours Per Day (ICD-10-PCS; 2025-04-16)
PROC: 5A1D70Z Performance of Urinary Filtration, Intermittent, Less than 6 Hours Per Day (ICD-10-PCS; 2025-04-19)
PROC: 5A1D70Z Performance of Urinary Filtration, Intermittent, Less than 6 Hours Per Day (ICD-10-PCS; 2025-04-20)
DX: G93.41 Metabolic encephalopathy (principal); N18.6 End stage renal disease; G45.9 Transient cerebral ischemic attack, unspecified; R47.01 Aphasia; I50.22 Chronic systolic (congestive) heart failure; I13.2 Hypertensive heart and chronic kidney disease with heart failure and with stage 5 chronic kidney disease, or end stage renal disease; I42.9 Cardiomyopathy, unspecified; R29.810 Facial weakness; D64.9 Anemia, unspecified; E11.22 Type 2 diabetes mellitus with diabetic chronic kidney disease; J44.9 Chronic obstructive pulmonary disease, unspecified; F29 Unspecified psychosis not due to a substance or known physiological condition; E78.5 Hyperlipidemia, unspecified; I25.10 Atherosclerotic heart disease of native coronary artery without angina pectoris; E83.39 Other disorders of phosphorus metabolism; B19.20 Unspecified viral hepatitis C without hepatic coma; I27.20 Pulmonary hypertension, unspecified; I08.3 Combined rheumatic disorders of mitral, aortic and tricuspid valves; R29.719 NIHSS score 19; I48.91 Unspecified atrial fibrillation; Z79.01 Long term (current) use of anticoagulants; Z95.810 Presence of automatic (implantable) cardiac defibrillator; Z79.899 Other long term (current) drug therapy; Z79.84 Long term (current) use of oral hypoglycemic drugs; Z85.528 Personal history of other malignant neoplasm of kidney; Z90.5 Acquired absence of kidney; Z91.158 Patient's noncompliance with renal dialysis for other reason; Z79.02 Long term (current) use of antithrombotics/antiplatelets; Z79.82 Long term (current) use of aspirin; Z86.73 Personal history of transient ischemic attack (TIA), and cerebral infarction without residual deficits; Z99.2 Dependence on renal dialysis
CPT/HCPCS: 36415; 70496; 70498; 70551; 71045; 80048; 80053; 80061; 80076; 80320; 82140; 82550; 82553; 82607; 82746; 82962; 83036; 83735; 83880; 84100; 84425; 84439; 84443; 84484; 85025; 85379; 86705; 86709; 87340; 90935; 92610; 93005; 93306; 93970; 94640; 97110; 97162; 97166; 97530; 97535; 99291; A4606; A6449; J0360; J1650; J1815; J2470; Q0163; Q9967; G0480